=== PATIENT | male | born 1985 | race Caucasian/White ===

== ENCOUNTER 2020-06-05 09:51 | Emergency (ER) | payer SELFPAY ==
[2020-06-05 09:53] VITALS: BP 107/63; PULSE 68; RESP 16; TEMP 36.8; O2SAT 98; BMI 21.5
--- NOTE | 2020-06-05 10:04 | ECG_ITS ---
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 Measurements Intervals [place] Rate: 61 P: 65 GA: 137 QRS: 69 QRSD: 80 T: 66 QT: 385 QTc: 389 Interpretive Statements SINUS RHYTHM No previous ECG available for comparison Electronically Signed On 06-05-2020 17:00:27 [employer] PROFESSION[employer] by Dwayne Bullock M.D. [email or web address]
--- NOTE | 2020-06-05 10:04 | XR_ITS ---
WS: [id number] Exam: XR chest 1V portable [id number] Date/Time of Exam: 06/05/2020 10:04 AM Reason For Exam: syncope No priors. Findings: The lungs are clear and fully expanded. Costophrenic angles are sharp. No infiltrates. Bronchovascula r relief appears normal. Cardiac silhouette is unremarkable. Bony elements are intact. XR/XR chest 1V portable [id number] IMPRESSION: Unremarkable chest radiograph.
[2020-06-05 10:10] VITALS: BP 107/63; BP 108/65; PULSE 61; PULSE 63
[2020-06-05 10:11] VITALS: BP 110/67; PULSE 74
[2020-06-05 10:13] LABS: Basophils % 0.4 %; Eosinophils % 0.8 %; Hematocrit 46.4 % (42.0-52.0); Hemoglobin 15.3 g/dL (11.7-16.6); Lymphocytes # 2.1 10^3/uL (0.8-4.8); Lymphocytes % 44.1 %; Mean Corpuscular Hemoglobin 30.8 pg (28.0-34.0); Mean Corpuscular Volume 93.4 fL (80-94); Mean Platelet Volume 9.6 fL (7.4-10.4); Monocytes # 0.5 10^3/uL (0.2-0.9); Monocytes % 10.4 %; Neutrophils # 2.07 10^3/uL (1.8-7.7); Neutrophils % 43.9 %; Nucleated Red Blood Cells % 0 %; Platelet Count 276 10^3/cmm (130-400); Red Blood Count 4.97 10^6/uL (4.1-5.3); Red Cell Distribution Width 11.9 % (12.1-15.1); White Blood Count 4.7 10^3/uL (4.0-10.0)
[2020-06-05 10:39] LABS: Alanine Aminotransferase 37 U/L (0-41); Albumin Level 4.4 g/dL (3.5-5.2); Alkaline Phosphatase 94 IU/L (40-130); Aspartate Amino Transferase 29 U/L (0-40); Blood Urea Nitrogen 13 mg/dL (6-20); Calcium 8.8 mg/dL (8.5-10.5); Carbon Dioxide 28 mmol/L (22-29); Chloride 98 mmol/L (98-107); Globulin 2.5 g/dL (1.3-4.6); Glomerular Filtration Rate 69.3 mL/min (90-130); Glucose 122 mg/dL (65-115); Osmolality Calculated 285 mOsm/kg (285-295); Sodium 137 mmol/L (136-145); Total Bilirubin 0.3 mg/dL (0.15-1.2); Total Protein 6.9 g/dL (6.6-8.7)
[2020-06-05 10:50] LABS: SARS Covid-2 Antigen Positive (Negative)
[2020-06-05 10:50] LABS: Influenza A by IFA Negative (Negative); Influenza B by IFA Negative (Negative)
--- NOTE | 2020-06-05 11:01 | W.ED.SYNCOPE ---
HPI - Syncope General: Chief Complaint: Syncope Stated Complaint: SYNCOPAL EPISODE Time Seen by Provider: 06/05/20 09:58 History of Present Illness: HPI narrative: 34-year-old male patient presents to the emergency department post syncopal episode. Spouse reports he has experienced episode of syncope while waiting for Covid test at [facility]. States he got warm inside, got out of the car to cool off then collapsed in the grass. She reports he did complain of nausea. Episode lasted approximately 2 to 3 seconds. States has history of syncopal episodes with unexpected medical testing or with needles. EMS was called to the scene, he was checked out, then experienced a near syncopal event in which his heart rate was in the 50s and blood pressure was 92/56. Spouse reports he has decreased intake of fluids as he has been ill. He also presents for Covid testing today. He has had fever, was 102.3 Mela night then decreased to 99.5 past 2 days. He reports cough congestion and fever, reports did not take anything for pain today. He did not sustain injuries during the collapse. He denies headache or neck pain upon exam. MD complaint: loss of consciousness and collapsed Onset (ago): hour(s) (1-2) Prodromal symptoms: lightheaded and other (got warm inside) Witnessed: Yes - by EMS (spouse) Context: other (while waiting for COVID testing) Injuries sustained associated with event: none Associated symptoms: Reports fever(s), lightheadedness and nausea; Deny abdominal pain or headache(s) History: previous syncopal episode (with needles or unexpected medical testing) Treatments prior to arrival: other (CBG 90, EKG - normal with some bradycardia per EMS) Review of Systems General: Reports: 10 or more systems reviewed and unremarkable except in HPI and below Const: Reports: fever(s), chills, body aches, change in appetite (Decreased), fatigue and malaise; Denies: diaphoresis Eyes: Denies: change in vision, blurry vision, eye discomfort or eye redness ENMT: Reports: throat pain, ear or mastoid pain, nasal discharge and nasal congestion; Denies: dental pain or disequilibrium Card: Reports: lightheadedness; Denies: palpitations, irregular heart rhythm, swelling of feet/ankles or dyspnea on exertion Resp: Reports: non-productive cough and chest congestion; Denies: dyspnea, productive cough or wheezing GI: Reports: nausea; Denies: abdominal pain, vomiting, diarrhea or constipation : Denies: dysuria Musc: Denies: neck pain, back pain, joint pain or joint swelling Skin/Breast: Denies: rash or pruritus Neuro: Denies: headache(s), weakness in extremities or behavioral changes Psych: Denies: anxiety or depression Tru/Lymph: Denies: easy bruising Physical Exam Const: COMMON NORMALS: no acute distress, patient oriented x3, healthy appearing and alert GENERAL APPEARANCE: cooperative, comfortable, well kempt and well hydrated HENMT: COMMON NORMALS: normocephalic, Normal external nose present and moist oral mucous membranes HEAD & SCALP: normocephalic NOSE: Normal external nose present Eye: COMMON NORMALS: Equal, round and reactive pupils present and EOMs intact bilaterally GENERAL EYE: appearance normal, both eyes and all related structures PUPIL: Yes Equal, round and reactive pupils present Neck/C-Spine: COMMON NORMALS: full ROM and no lymphadenopathy GENERAL: Yes normal visual inspection and Yes trachea midline CERVICAL SPINE: Yes cervical ROM normal Lymph: LYMPHATIC: no lymphadenopathy noted Chest: COMMONS NORMALS: normal inspection of the chest Resp: COMMON NORMALS: normal respiratory effort and clear to auscultation bilaterally AUSCULTATION: clear to auscultation bilaterally Cardio: COMMON NORMALS: regular rhythm, S1 normal heart sound present, S2 normal heart sound present and Peripheral pulses 2+ throughout RHYTHM: regular rhythm HEART SOUNDS: S1 normal heart sound present and S2 normal heart sound present PERIPHERAL PULSES: Peripheral pulses 2+ throughout GI: COMMON NORMALS: Normal to inspection, nondistended, normoactive bowel sounds present, Soft to palpation and non-tender INSPECTION: Yes normal to inspection PALPATION: Yes Soft to palpation : COMMON NORMALS: Yes no CVA tenderness BLADDER/KIDNEY EXAM: Yes no CVA tenderness Back/Pelvis: COMMON NORMALS: no CVA tenderness and thoracic and lumbar spine normal to inspection Extremity: COMMON NORMALS: normal to inspection and capillary refill normal Neuro: LISA COMA SCALE: document GCS findings Lisa coma scale eye opening: Spontaneous Lisa coma scale verbal response: Orientated Allison coma scale motor response: Obey commands Lisa coma scale total score: 15 COMMON NORMALS: patient oriented x3 and no focal motor deficits SENSORIUM/ORIENTATION: Yes alert SPEECH: speech normal GAIT: Yes Normal gait present MOTOR EXAM: 5/5 motor strength present throughout Right pupil size (mm): 4 Left pupil size (mm): 4 Psych: COMMON NORMALS: mental status grossly normal, Normal thought process present, cooperative, normal affect and speech normal APPEARANCE: Yes grossly normal and Yes well kempt ATTITUDE: Yes calm ACTIVITY/MOTOR BEHAVIOR: Yes appropriate eye contact SPEECH: Yes normal speech THOUGHT PROCESS: Normal thought process present MEMORY/COGNITION: Yes memory grossly intact INSIGHT: Good insight present (Psych) JUDGEMENT: Good judgement present (Psych) Skin: COMMON NORMALS: no rashes or lesions noted and turgor normal GENERAL SKIN EXAM: no rashes or lesions noted and turgor normal Course Vital Signs: Vital signs: Vital Signs Temperature 98.3 F 06/05/20 09:53 Pulse Rate 67 06/05/20 11:54 Respiratory Rate 18 06/05/20 11:54 Blood Pressure 108/65 06/05/20 11:54 Pulse Oximetry 100 06/05/20 11:54 MDM - Syncope MDM Narrative: Medical decision making narrative: 34-year-old male patient presents to the emergency department with syncopal episode, patient was found to be Covid positive here in the ED. Syncopal episode occurred prior to testing of Covid while at [facility], he was sitting in his car when he became flushed, apparent vasovagal episode, he did well here in the ED, IV fluids administered along with Zofran in route to the ED via EMS. Remained normal sinus rhythm to the monitor, oxygen saturation remained 96 to 100% here in the ED. He reports was feeling better, is wanting to go home. He has history of vasovagal episodes with medical testing or needles. He was educated concerning Covid infection and need for quarantine. Scription's provided, agrees for follow-up with his primary care/return to emergency department if he develops concerning symptoms. Lab Data: Labs: Lab Results 06/05/20 06/05/20 06/05/20 Range/Units 10:00 10:02 10:02 WBC 4.7 (4.0-10.0) 10^3/ uL RBC 4.97 (4.1-5.3) 10^6/u L Hgb 15.3 (11.7-16.6) g/dL Hct 46.4 (42.0-52.0) % MCV 93.4 (80-94) fL MCH 30.8 (28.0-34.0) pg MCHC 33.0 (30.0-36.0) g/dL RDW 11.9 L (12.1-15.1) % Plt Count 276 (130-400) 10^3/c mm MPV 9.6 (7.4-10.4) fL Neut % (Auto) 43.9 % Lymph % (Auto) 44.1 % [place] % (Auto) 10.4 % Eos % (Auto) 0.8 % Baso % (Auto) 0.4 % Neut # (Auto) 2.07 (1.8-7.7) 10^3/u L Lymph # (Auto) 2.1 (0.8-4.8) 10^3/u L [place] # (Auto) 0.5 (0.2-0.9) 10^3/u L Eos # (Auto) 0.0 (0.0-0.8) 10^3/u L Baso # (Auto) 0.0 (0.0-0.1) 10^3/u L Nucleated RBC % (a uto) 0 % Nucleated RBCs # 0.0 /100WBC Sodium 137 (136-145) mmol/L Potassium 4.0 (3.5-5.1) mmol/L Chloride 98 (98-107) mmol/L Carbon Dioxide 28 (22-29) mmol/L Anion Gap 15.0 (5-19) BUN 13 (6-20) mg/dL Creatinine 1.2 (0.7-1.2) mg/dL GFR Calculation 69.3 L (90-130) mL/min Glucose 122 H (65-115) mg/dL Calculated Osmolal ity 285 (285-295) mOsm/k g Calcium 8.8 (8.5-10.5) mg/dL Total Bilirubin 0.3 (0.15-1.2) mg/dL AST 29 (0-40) U/L ALT 37 (0-41) U/L Alkaline Phosphata se 94 (40-130) IU/L Total Protein 6.9 (6.6-8.7) g/dL Albumin 4.4 (3.5-5.2) g/dL Globulin 2.5 (1.3-4.6) g/dL Influenza Type A A g (Negative) Influenza Type B A g (Negative) SARS-CoV-2 Ag (Rap id) Positive H (Negative) 06/05/20 Range/Units 10:12 WBC (4.0-10.0) 10^3/ uL RBC (4.1-5.3) 10^6/u L Hgb (11.7-16.6) g/dL Hct (42.0-52.0) % MCV (80-94) fL MCH (28.0-34.0) pg MCHC (30.0-36.0) g/dL RDW (12.1-15.1) % Plt Count (130-400) 10^3/c mm MPV (7.4-10.4) fL Neut % (Auto) % Lymph % (Auto) % [place] % (Auto) % Eos % (Auto) % Baso % (Auto) % Neut # (Auto) (1.8-7.7) 10^3/u L Lymph # (Auto) (0.8-4.8) 10^3/u L [place] # (Auto) (0.2-0.9) 10^3/u L Eos # (Auto) (0.0-0.8) 10^3/u L Baso # (Auto) (0.0-0.1) 10^3/u L Nucleated RBC % (a uto) % Nucleated RBCs # /100WBC Sodium (136-145) mmol/L Potassium (3.5-5.1) mmol/L Chloride (98-107) mmol/L Carbon Dioxide (22-29) mmol/L Anion Gap (5-19) BUN (6-20) mg/dL Creatinine (0.7-1.2) mg/dL GFR Calculation (90-130) mL/min Glucose (65-115) mg/dL Calculated Osmolal ity (285-295) mOsm/k g Calcium (8.5-10.5) mg/dL Total Bilirubin (0.15-1.2) mg/dL AST (0-40) U/L ALT (0-41) U/L Alkaline Phosphata se (40-130) IU/L Total Protein (6.6-8.7) g/dL Albumin (3.5-5.2) g/dL Globulin (1.3-4.6) g/dL Influenza Type A A g Negative (Negative) Influenza Type B A g Negative (Negative) SARS-CoV-2 Ag (Rap id) (Negative) Imaging Data^: CXR: Radiologist's impression: [address] [address] XRay Report Signed Patient: Chevy Sunshine Unit #: [id number] : 1985 Age/Sex: 34 / M ADM Date: 06/05/20 Loc: ER Room/Bed: Attending Dr: Ordering Provider/Ordering MD: Macrina Santana Date of Service: 06/05/20 Procedure(s): XR chest 1V portable [id number] Accession Number(s): [id number] Report Number: [id number] WS: [id number] Exam: XR chest 1V portable [id number] Date/Time of Exam: 06/05/2020 10:04 AM Reason For Exam: syncope No priors. Findings: The lungs are clear and fully expanded. Costophrenic angles are sharp. No infiltrates. Bronchovascular relief appears normal. Cardiac silhouette is unremarkable. Bony elements are intact. XR/XR chest 1V portable [id number] IMPRESSION: Unremarkable chest radiograph. Dictated By: Moo Reyes DO Signed By: Moo Reyes DO Signed Date/Time: 06/05/20 1038 DD/ 1038 EKG Data^: EKG 1: EKG interpretation date: 06/05/20 EKG interpretation time: 10:50 Computer Generated Interpretation: Normal sinus rhythm, normal ECG Discharge Plan Discharge Patient Disposition: Home Clinical Impression: Vasovagal syncope, COVID-19 Condition: Stable Prescriptions: New Zofran 4 mg tablet 4 mg PO Q4H PRN (Reason: Nausea And Vomiting) Qty: 10 RF: 0 Discharge Orders: Discharge ED (Routine); Ordered 06/05/20 Ordered By: Macrina Santana Discharge Diet: Advance as tolerated and Clear Liquid Discharge Activity: Limit activity as instructed Patient Instructions: Syncope (ED), Hypotension (ED), Viral Syndrome (ED) Activity Restrictions/Additional Instructions: Return to the emergency department if you develop chest pain, inability to breathe, inability to catch your breath Return to the emergency department if you develop nausea vomiting despite use of Zofran You will need lots and lots of fluids, take Motrin alternate with Tylenol as needed for pain/fever You will need to remain in quarantine for 10 days, [facility] will be contacting you with further instructions. 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
[2020-06-05 11:54] VITALS: BP 108/65; PULSE 67; RESP 18; O2SAT 100
== END 2020-06-05 11:58 | disposition home or self-care (01) ==
PROVIDERS: Emergency Provider Nurse Practitioner Family
DX: R55 Syncope and collapse (principal); U07.1 COVID-19
CPT/HCPCS: 12345; 71045; 80053; 85025; 87426; 87804; 93005; 99281; 99283